=== PATIENT | male | born 1980 | race Caucasian/White ===

== ENCOUNTER 2020-01-16 21:47 | Emergency (ER) | payer MEDICAID ==
[~2020-01-16] VITALS: Ht 175.3 cm; Wt 68.2 kg
[~2020-01-16 21:47] MED LIST: TRAM50TA2 PO
[2020-01-16] MEDS ORDERED: naproxen 500mg tablet PO ONE (22:50)
[2020-01-16] MEDS ORDERED: HYDROcodone/acetaminophen 10/325mg tab PO ONE (22:50)
[2020-01-16] MEDS ORDERED: NAPR-56 PO (22:54)
[2020-01-16 23:28] VITALS: BP 136/86
== END 2020-01-16 23:29 | disposition home or self-care (01) ==
LOC: ER 21:47
DX: S93.402A Sprain of unspecified ligament of left ankle, initial encounter (principal); M25.572 Pain in left ankle and joints of left foot; F17.200 Nicotine dependence, unspecified, uncomplicated; F12.90 Cannabis use, unspecified, uncomplicated; Z72.89 Other problems related to lifestyle; Z88.0 Allergy status to penicillin; Z79.899 Other long term (current) drug therapy; W18.39XA Other fall on same level, initial encounter; Y93.89 Activity, other specified; Y92.828 Other wilderness area as the place of occurrence of the external cause; Y99.8 Other external cause status
CPT/HCPCS: 29515; 73610; 99284